=== PATIENT | male | born 1950 | race Caucasian/White ===

== ENCOUNTER 2017-10-19 16:16 | Inpatient (IN) | payer OTHER ==
[~2017-10-19] VITALS: Ht 175.3 cm; Wt 80.0 kg
[2017-10-20 00:52] LABS: MCH 30.7 PG (29.0-34.0); MCV 90.4 FL (86-99); RBC DIS.WIDTH-SD 50.1 % (39-53); RED BLOOD COUNT 5.53 M/uL (4.00-5.50); WHITE BLOOD COUNT 9.4 K/uL (4.1-10.2)
[2017-10-20 01:07] LABS: ALBUMIN 4.1 g/dL (3.2-4.8); CHLORIDE 99 mEq/L (99-109)
[2017-10-20 01:08] LABS: POTASSIUM 4.6 mEq/L (3.7-5.4); SODIUM 139 mEq/L (136-147)
[2017-10-20 01:10] LABS: GLUCOSE 96 mg/dL (70-99); TOTAL PROTEIN 7.8 g/dL (6.4-8.3)
[2017-10-20 01:12] LABS: TOTAL BILIRUBIN 5.1 mg/dL (0.0-1.0)
[2017-10-20 01:13] LABS: ALKALINE PHOSPHATASE 969 IU/L (3-129); CREATININE 0.9 mg/dL (0.6-1.3); GFR ESTIMATE (CALCULATED) > 59 mL/min/ (58.99-99999)
[2017-10-20 01:15] LABS: AST (GOT) 216 IU/L (2-34); UREA NITROGEN (BUN) 28 mg/dL (9-23)
[2017-10-20 01:16] LABS: ALT (GPT) 249 IU/L (3-49)
[2017-10-20 01:45] LABS: PLAT.SUFFICIENCY ADEQUATE; PLATELET COUNT 235 K/uL (156-360)
[2017-10-20 01:54] LABS: LIPASE 38 U/L (1.0-51.0)
[2017-10-20 02:18] LABS: ACETAMINOPHEN (TYLENOL) < 10 mcg/mL (10-30); SALICYLATE < 5.0 MG/DL (15-30)
[2017-10-20] MEDS ORDERED: LIPITOR80 MG PO (08:01)
[2017-10-20] MEDS ORDERED: NAPROXEN500 MG PO (08:01)
[2017-10-20] MEDS ORDERED: HYDROCHLOROTHIA25 MG PO (08:02)
[2017-10-20] MEDS ORDERED: VITAMIN D31000 UNIT PO (08:02)
[2017-10-20] MEDS ORDERED: AMLODIPINE BESYL5 MG PO (08:02)
[2017-10-20] MEDS ORDERED: TENORMIN25 MG PO (08:02)
[2017-10-20] MEDS ORDERED: ADULT ASPIRIN R81 MG PO (08:02)
[2017-10-20] MEDS ORDERED: VENTOLIN HFA18 GM IH (08:02)
[2017-10-20 16:10] VITALS: BP 156/77
[2017-10-20 19:40] VITALS: BP 155/74
[2017-10-20 23:55] VITALS: BP 151/79
[2017-10-21 03:35] VITALS: BP 142/88
[2017-10-21 07:05] VITALS: BP 147/79
[2017-10-21 07:33] LABS: HEMATOCRIT 46.8 % (38.0-50.0); HEMOGLOBIN 15.5 G/DL (12.5-16.6); MCH 30.6 PG (29.0-34.0); MCHC 33.1 G/DL (30.0-36.0); MCV 92.3 FL (86-99); RBC DIS.WIDTH-CV 15.4 % (11.8-14.6); RED BLOOD COUNT 5.07 M/uL (4.00-5.50); WHITE BLOOD COUNT 7.9 K/uL (4.1-10.2)
[2017-10-21 08:03] LABS: ALBUMIN 3.5 G/DL (3.2-4.8); ALKALINE PHOSPHATASE 804 IU/L (3-129); ALT (GPT) 162 IU/L (3-49); AST (GOT) 163 IU/L (2-34); CHLORIDE 99 MEQ/L (99-109); CREATININE 0.7 MG/DL (0.6-1.3); GFR ESTIMATE (CALCULATED) > 59 mL/min/ (58.99-99999); GLUCOSE 103 mg/dL (70-99); POTASSIUM 4.4 MEQ/L (3.7-5.4); SODIUM 139 MEQ/L (136-147); TOTAL BILIRUBIN 4.6 MG/DL (0.0-1.0); TOTAL PROTEIN 5.8 G/DL (6.4-8.3); UREA NITROGEN (BUN) 21 mg/dL (9-23)
[2017-10-21 08:09] LABS: PLAT.SUFFICIENCY ADEQUATE; PLATELET COUNT 190 K/uL (156-360)
[2017-10-21 12:06] VITALS: BP 147/90
[2017-10-21 15:05] VITALS: BP 145/68
[2017-10-21 19:53] VITALS: BP 159/75
[2017-10-21 23:52] VITALS: BP 136/65
[2017-10-22] VITALS (9 sets, daily range): BP systolic 120–139; BP diastolic 62–74
[2017-10-22 06:42] LABS: ALBUMIN 3.7 G/DL (3.2-4.8); ALKALINE PHOSPHATASE 861 IU/L (3-129); ALT (GPT) 200 IU/L (3-49); AST (GOT) 217 IU/L (2-34); CHLORIDE 98 MEQ/L (99-109); CREATININE 0.7 MG/DL (0.6-1.3); GFR ESTIMATE (CALCULATED) > 59 mL/min/ (58.99-99999); GLUCOSE 114 mg/dL (70-99); POTASSIUM 4.1 MEQ/L (3.7-5.4); SODIUM 139 MEQ/L (136-147); TOTAL PROTEIN 5.9 G/DL (6.4-8.3); UREA NITROGEN (BUN) 20 mg/dL (9-23)
[2017-10-22 08:11] LABS: CARCINOEMBR.ANTIGEN 754.8 NG/ML
[2017-10-22 08:11] LABS: INTER. NORMALIZED RATIO 1.1
[2017-10-22 08:13] LABS: PTT 40.4 SEC (25-37)
[2017-10-23 03:42] VITALS: BP 144/82
[2017-10-23 08:30] VITALS: BP 132/67
[2017-10-23 11:30] VITALS: BP 134/75
[2017-10-23 16:37] VITALS: BP 145/79
[2017-10-24] VITALS: BP 136/68
[2017-10-24 07:56] LABS: HEMATOCRIT 44.4 % (38.0-50.0); HEMOGLOBIN 14.8 G/DL (12.5-16.6); MCH 30.6 PG (29.0-34.0); MCHC 33.3 G/DL (30.0-36.0); MCV 91.9 FL (86-99); RBC DIS.WIDTH-CV 15.9 % (11.8-14.6); RBC DIS.WIDTH-SD 53.3 % (39-53); RED BLOOD COUNT 4.83 M/uL (4.00-5.50); WHITE BLOOD COUNT 9.4 K/uL (4.1-10.2)
[2017-10-24 08:24] LABS: PLAT.SUFFICIENCY ADEQUATE; PLATELET COUNT 199 K/uL (156-360)
[2017-10-24 08:30] VITALS: BP 130/78
[2017-10-24 08:44] LABS: ALBUMIN 3.7 G/DL (3.2-4.8); ALKALINE PHOSPHATASE 918 IU/L (3-129); ALT (GPT) 325 IU/L (3-49); CHLORIDE 96 MEQ/L (99-109); CREATININE 0.8 MG/DL (0.6-1.3); GFR ESTIMATE (CALCULATED) > 59 mL/min/ (58.99-99999); GLUCOSE 104 mg/dL (70-99); POTASSIUM 4.4 MEQ/L (3.7-5.4); SODIUM 137 MEQ/L (136-147); TOTAL PROTEIN 5.9 G/DL (6.4-8.3); UREA NITROGEN (BUN) 23 mg/dL (9-23)
[2017-10-24 08:57] LABS: AST (GOT) 316 IU/L (2-34); TOTAL BILIRUBIN 8.2 MG/DL (0.0-1.0)
[2017-10-24 16:01] VITALS: BP 124/65
[2017-10-24 23:49] VITALS: BP 129/65
[2017-10-25 07:21] LABS: ALBUMIN 3.7 G/DL (3.2-4.8); ALKALINE PHOSPHATASE 1040 IU/L (3-129); ALT (GPT) 357 IU/L (3-49); AST (GOT) 365 IU/L (2-34); CHLORIDE 94 MEQ/L (99-109); CREATININE 0.8 MG/DL (0.6-1.3); GFR ESTIMATE (CALCULATED) > 59 mL/min/ (58.99-99999); GLUCOSE 123 mg/dL (70-99); POTASSIUM 3.6 MEQ/L (3.7-5.4); SODIUM 135 MEQ/L (136-147); TOTAL BILIRUBIN 9.1 MG/DL (0.0-1.0); TOTAL PROTEIN 6.1 G/DL (6.4-8.3); UREA NITROGEN (BUN) 23 mg/dL (9-23)
[2017-10-25 08:29] VITALS: BP 009/72; BP 109/72
[2017-10-25 15:23] VITALS: BP 129/87
[2017-10-25 23:57] VITALS: BP 146/70
[2017-10-26 06:44] LABS: HEMATOCRIT 44.4 % (38.0-50.0); HEMOGLOBIN 14.9 G/DL (12.5-16.6); MCH 30.4 PG (29.0-34.0); MCHC 33.6 G/DL (30.0-36.0); MCV 90.6 FL (86-99); PLATELET COUNT 221 K/uL (156-360); RBC DIS.WIDTH-SD 53.2 % (39-53); WHITE BLOOD COUNT 9.2 K/uL (4.1-10.2)
[2017-10-26 07:10] LABS: ALBUMIN 3.4 G/DL (3.2-4.8); ALKALINE PHOSPHATASE 935 IU/L (3-129); ALT (GPT) 372 IU/L (3-49); AST (GOT) 395 IU/L (2-34); CHLORIDE 92 MEQ/L (99-109); CREATININE 0.8 MG/DL (0.6-1.3); GFR ESTIMATE (CALCULATED) > 59 mL/min/ (58.99-99999); GLUCOSE 103 mg/dL (70-99); POTASSIUM 3.6 MEQ/L (3.7-5.4); SODIUM 135 MEQ/L (136-147); TOTAL PROTEIN 5.7 G/DL (6.4-8.3); UREA NITROGEN (BUN) 19 mg/dL (9-23)
[2017-10-26 07:56] VITALS: BP 134/78
[2017-10-26 15:55] VITALS: BP 148/79
[2017-10-26 23:29] VITALS: BP 163/90
[2017-10-27 06:54] LABS: ALBUMIN 3.5 G/DL (3.2-4.8); ALKALINE PHOSPHATASE 1012 IU/L (3-129); ALT (GPT) 345 IU/L (3-49); AST (GOT) 410 IU/L (2-34); CHLORIDE 91 MEQ/L (99-109); GFR ESTIMATE (CALCULATED) > 59 mL/min/ (58.99-99999); GLUCOSE 92 mg/dL (70-99); POTASSIUM 3.6 MEQ/L (3.7-5.4); SODIUM 134 MEQ/L (136-147); TOTAL BILIRUBIN 10.8 MG/DL (0.0-1.0); TOTAL PROTEIN 5.8 G/DL (6.4-8.3); UREA NITROGEN (BUN) 24 mg/dL (9-23)
[2017-10-27 08:40] VITALS: BP 144/74
[2017-10-27 15:00] VITALS: BP 147/83
[2017-10-27 22:46] VITALS: BP 139/70
[2017-10-28 06:16] LABS: BASOPHIL (%) 0.2 % (0-1); EOSINOPHIL (%) 0 % (0-5); HEMATOCRIT 44.5 % (38.0-50.0); HEMOGLOBIN 15.2 G/DL (12.5-16.6); IMMATURE GRANULOCYTE (%) 1.3 % (0.0-0.7); LYMPHOCYTE (%) 2.4 % (15-42); LYMPHOCYTE COUNT 0.3 K/uL (1.0-2.8); MCH 30.7 PG (29.0-34.0); MCHC 34.2 G/DL (30.0-36.0); MCV 89.9 FL (86-99); MONOCYTE (%) 7.8 % (3-12); NEUTROPHIL (%) 88.3 % (45-76); PLATELET COUNT 245 K/uL (156-360); RBC DIS.WIDTH-CV 16.1 % (11.8-14.6); RBC DIS.WIDTH-SD 53.4 % (39-53); RED BLOOD COUNT 4.95 M/uL (4.00-5.50); WHITE BLOOD COUNT 12.5 K/uL (4.1-10.2)
[2017-10-28 07:45] LABS: ALBUMIN 3.5 G/DL (3.2-4.8); ALKALINE PHOSPHATASE 945 IU/L (3-129); ALT (GPT) 270 IU/L (3-49); AST (GOT) 326 IU/L (2-34); CHLORIDE 92 MEQ/L (99-109); GLUCOSE 108 mg/dL (70-99); SODIUM 135 MEQ/L (136-147); TOTAL BILIRUBIN 10.9 MG/DL (0.0-1.0); TOTAL PROTEIN 6.2 G/DL (6.4-8.3)
[2017-10-28 07:49] LABS: CREATININE 2.3 MG/DL (0.6-1.3); GFR ESTIMATE (CALCULATED) 30 mL/min/ (58.99-99999); UREA NITROGEN (BUN) 51 mg/dL (9-23)
[2017-10-28 07:50] LABS: POTASSIUM 4.7 MEQ/L (3.7-5.4)
[2017-10-28 08:28] VITALS: BP 154/72
[2017-10-28 15:49] VITALS: BP 131/70
[2017-10-28 23:02] VITALS: BP 145/75
[2017-10-29 05:38] LABS: APPEARANCE CLOUDY ((CLEAR)); BILIRUBIN SMALL; BLOOD MODERATE; GLUCOSE (STRIP) 50; KETONES NEGATIVE; LEUKOCYTES NEGATIVE; NITRITE NEGATIVE; PROTEIN (STRIP) 100; SPECIFIC GRAVITY 1.016 (1.000-1.030); UROBILINOGEN 0.2 MG/DL (0.2-1.0)
[2017-10-29 05:46] LABS: COLOR BROWN ((YELLOW))
[2017-10-29 05:57] LABS: BASOPHIL (%) 0.2 % (0-1); EOSINOPHIL (%) 0 % (0-5); HEMOGLOBIN 14.9 G/DL (12.5-16.6); IMMATURE GRANULOCYTE (%) 1.3 % (0.0-0.7); LYMPHOCYTE (%) 3.9 % (15-42); LYMPHOCYTE COUNT 0.5 K/uL (1.0-2.8); MCH 30.7 PG (29.0-34.0); MCHC 33.9 G/DL (30.0-36.0); MCV 90.5 FL (86-99); MONOCYTE (%) 7.8 % (3-12); NEUTROPHIL (%) 86.8 % (45-76); PLATELET COUNT 277 K/uL (156-360); RBC DIS.WIDTH-CV 16.3 % (11.8-14.6); RBC DIS.WIDTH-SD 54.3 % (39-53); RED BLOOD COUNT 4.86 M/uL (4.00-5.50); WHITE BLOOD COUNT 12.6 K/uL (4.1-10.2)
[2017-10-29 06:00] LABS: UR CREATININE CONCENTRATION 91.9 MG/DL
[2017-10-29 06:04] LABS: BACTERIA 3+ /HPF; EPITHELIAL CELLS 1+ /HPF; MUCUS 1+ /LPF; RED BLOOD CELLS 0-5 /HPF (0-5)
[2017-10-29 06:05] LABS: AMORPHOUS URATES CRYSTALS 1+
[2017-10-29 06:24] LABS: ALBUMIN 3.5 G/DL (3.2-4.8); ALKALINE PHOSPHATASE 824 IU/L (3-129); ALT (GPT) 246 IU/L (3-49); AST (GOT) 297 IU/L (2-34); CHLORIDE 90 MEQ/L (99-109); CREATININE 4.1 MG/DL (0.6-1.3); GFR ESTIMATE (CALCULATED) 16 mL/min/ (58.99-99999); GLUCOSE 87 mg/dL (70-99); SODIUM 131 MEQ/L (136-147); TOTAL BILIRUBIN 11.4 MG/DL (0.0-1.0); TOTAL PROTEIN 6.1 G/DL (6.4-8.3); UREA NITROGEN (BUN) 83 mg/dL (9-23)
[2017-10-29 07:04] LABS: CHLORIDE 92 MEQ/L (99-109); GLUCOSE 82 mg/dL (70-99); MAGNESIUM 3.2 mg/dl (1.3-2.7); PHOSPHORUS 8.2 mg/dL (2.5-4.9); POTASSIUM 5.2 MEQ/L (3.7-5.4); SODIUM 133 MEQ/L (136-147); URIC ACID 14.7 mg/dL (3.1-9.2)
[2017-10-29 07:05] LABS: CREATININE 4.2 MG/DL (0.6-1.3); GFR ESTIMATE (CALCULATED) 15 mL/min/ (58.99-99999); UREA NITROGEN (BUN) 83 mg/dL (9-23)
[2017-10-29 07:43] VITALS: BP 144/67
[2017-10-29 16:00] VITALS: BP 115/57
[2017-10-29 23:31] VITALS: BP 127/75
[2017-10-30 02:42] LABS: C DIFF TOXIN NEGATIVE (NEGATIVE)
[2017-10-30 05:08] LABS: BASOPHIL (%) 0 % (0-1); EOSINOPHIL (%) 0 % (0-5); HEMATOCRIT 41.3 % (38.0-50.0); HEMOGLOBIN 14.1 G/DL (12.5-16.6); IMMATURE GRANULOCYTE (%) 0.9 % (0.0-0.7); LYMPHOCYTE (%) 2.1 % (15-42); LYMPHOCYTE COUNT 0.2 K/uL (1.0-2.8); MCH 30.3 PG (29.0-34.0); MCHC 34.1 G/DL (30.0-36.0); MCV 88.8 FL (86-99); MONOCYTE (%) 8.2 % (3-12); MONOCYTE COUNT 0.9 K/uL (0-0.8); NEUTROPHIL (%) 88.8 % (45-76); NEUTROPHIL COUNT 9.5 K/uL (1.8-6.4); PLATELET COUNT 233 K/uL (156-360); RBC DIS.WIDTH-CV 16.5 % (11.8-14.6); RED BLOOD COUNT 4.65 M/uL (4.00-5.50); WHITE BLOOD COUNT 10.7 K/uL (4.1-10.2)
[2017-10-30 05:35] LABS: ALKALINE PHOSPHATASE 890 IU/L (3-129); ALT (GPT) 220 IU/L (3-49); AST (GOT) 320 IU/L (2-34); CHLORIDE 95 MEQ/L (99-109); GFR ESTIMATE (CALCULATED) 16 mL/min/ (58.99-99999); GLUCOSE 79 mg/dL (70-99); POTASSIUM 4.9 MEQ/L (3.7-5.4); SODIUM 136 MEQ/L (136-147); TOTAL BILIRUBIN 12.9 MG/DL (0.0-1.0); TOTAL PROTEIN 5.5 G/DL (6.4-8.3); UREA NITROGEN (BUN) 66 mg/dL (9-23)
[2017-10-30 07:01] VITALS: BP 126/64
[2017-10-30 11:17] VITALS: BP 124/71
[2017-10-30 11:32] LABS: HEPATITIS B SURFACE ANTIGEN Nonreactive
[2017-10-30 11:33] LABS: HEPATITIS C ANTIBODY Nonreactive
[2017-10-30 11:34] LABS: ANTI-HEPATITIS B CORE (TOTAL) Nonreactive; HEPATITIS B SURFACE ANTIBODY Nonreactive
[2017-10-30 15:00] VITALS: BP 118/64
[2017-10-30 22:42] VITALS: BP 121/66
[2017-10-31 06:48] LABS: ALBUMIN 3.1 G/DL (3.2-4.8); ALKALINE PHOSPHATASE 943 IU/L (3-129); ALT (GPT) 281 IU/L (3-49); AST (GOT) 382 IU/L (2-34); CHLORIDE 92 MEQ/L (99-109); CREATININE 4.6 MG/DL (0.6-1.3); GFR ESTIMATE (CALCULATED) 14 mL/min/ (58.99-99999); GLUCOSE 96 mg/dL (70-99); SODIUM 132 MEQ/L (136-147); TOTAL PROTEIN 5.5 G/DL (6.4-8.3); UREA NITROGEN (BUN) 73 mg/dL (9-23); URIC ACID 10.4 mg/dL (3.1-9.2)
[2017-10-31 07:00] VITALS: BP 160/82
[2017-10-31 09:45] VITALS: BP 124/70
[2017-11-01 00:37] VITALS: BP 125/64
[2017-11-01 07:02] LABS: ALBUMIN 2.9 G/DL (3.2-4.8); ALKALINE PHOSPHATASE 992 IU/L (3-129); ALT (GPT) 311 IU/L (3-49); AST (GOT) 431 IU/L (2-34); CHLORIDE 95 MEQ/L (99-109); CREATININE 4.2 MG/DL (0.6-1.3); GFR ESTIMATE (CALCULATED) 15 mL/min/ (58.99-99999); GLUCOSE 99 mg/dL (70-99); POTASSIUM 4.9 MEQ/L (3.7-5.4); SODIUM 138 MEQ/L (136-147); TOTAL BILIRUBIN 14.9 MG/DL (0.0-1.0); TOTAL PROTEIN 5.2 G/DL (6.4-8.3); UREA NITROGEN (BUN) 60 mg/dL (9-23)
[2017-11-01 07:42] VITALS: BP 128/68
[2017-11-01 17:25] VITALS: BP 148/70
[2017-11-01 23:35] VITALS: BP 128/75
[2017-11-02 06:02] LABS: BASOPHIL (%) 0.3 % (0-1); EOSINOPHIL (%) 0.1 % (0-5); HEMATOCRIT 40.8 % (38.0-50.0); HEMOGLOBIN 14.2 G/DL (12.5-16.6); IMMATURE GRANULOCYTE (%) 1.5 % (0.0-0.7); LYMPHOCYTE (%) 1.7 % (15-42); LYMPHOCYTE COUNT 0.2 K/uL (1.0-2.8); MCH 30.5 PG (29.0-34.0); MCHC 34.8 G/DL (30.0-36.0); MCV 87.6 FL (86-99); MONOCYTE (%) 6.8 % (3-12); MONOCYTE COUNT 0.8 K/uL (0-0.8); NEUTROPHIL (%) 89.6 % (45-76); NEUTROPHIL COUNT 10.3 K/uL (1.8-6.4); PLATELET COUNT 177 K/uL (156-360); RBC DIS.WIDTH-SD 53.6 % (39-53); RED BLOOD COUNT 4.66 M/uL (4.00-5.50); WHITE BLOOD COUNT 11.5 K/uL (4.1-10.2)
[2017-11-02 07:11] LABS: ALKALINE PHOSPHATASE 980 IU/L (3-129); ALT (GPT) 308 IU/L (3-49); AST (GOT) 343 IU/L (2-34); CHLORIDE 93 MEQ/L (99-109); CREATININE 5.5 MG/DL (0.6-1.3); GFR ESTIMATE (CALCULATED) 11 mL/min/ (58.99-99999); GLUCOSE 83 mg/dL (70-99); POTASSIUM 5.7 MEQ/L (3.7-5.4); SODIUM 136 MEQ/L (136-147); TOTAL BILIRUBIN 16.4 MG/DL (0.0-1.0); TOTAL PROTEIN 5.3 G/DL (6.4-8.3); UREA NITROGEN (BUN) 86 mg/dL (9-23); VANCOMYCIN, TROUGH 10.3 MCG/ML (10-20)
[2017-11-02 07:47] VITALS: BP 130/75
[2017-11-02 15:46] VITALS: BP 129/69
[2017-11-02 23:30] VITALS: BP 143/84
[2017-11-03 05:45] LABS: BASOPHIL (%) 0.4 % (0-1); BASOPHIL COUNT 0.1 K/uL (0-0.1); EOSINOPHIL (%) 0.1 % (0-5); HEMATOCRIT 43.4 % (38.0-50.0); HEMOGLOBIN 14.8 G/DL (12.5-16.6); IMMATURE GRANULOCYTE (%) 1.6 % (0.0-0.7); LYMPHOCYTE (%) 1.3 % (15-42); LYMPHOCYTE COUNT 0.2 K/uL (1.0-2.8); MCH 29.4 PG (29.0-34.0); MCHC 34.1 G/DL (30.0-36.0); MCV 86.1 FL (86-99); MONOCYTE COUNT 0.9 K/uL (0-0.8); NEUTROPHIL (%) 89.6 % (45-76); NRBC (%) 0.1 /100 WBC (0-0); PLATELET COUNT 217 K/uL (156-360); RBC DIS.WIDTH-CV 16.6 % (11.8-14.6); RBC DIS.WIDTH-SD 51.2 % (39-53); RED BLOOD COUNT 5.04 M/uL (4.00-5.50); WHITE BLOOD COUNT 13.4 K/uL (4.1-10.2)
[2017-11-03 07:14] LABS: ALBUMIN 3.1 G/DL (3.2-4.8); ALKALINE PHOSPHATASE 1033 IU/L (3-129); ALT (GPT) 296 IU/L (3-49); AST (GOT) 348 IU/L (2-34); CHLORIDE 92 MEQ/L (99-109); CREATININE 4.8 MG/DL (0.6-1.3); GFR ESTIMATE (CALCULATED) 13 mL/min/ (58.99-99999); GLUCOSE 93 mg/dL (70-99); MAGNESIUM 2.8 mg/dl (1.3-2.7); PHOSPHORUS 5.7 mg/dL (2.5-4.9); POTASSIUM 5.1 MEQ/L (3.7-5.4); SODIUM 134 MEQ/L (136-147); TOTAL BILIRUBIN 17.3 MG/DL (0.0-1.0); TOTAL PROTEIN 5.6 G/DL (6.4-8.3); UREA NITROGEN (BUN) 67 mg/dL (9-23); URIC ACID 9.6 mg/dL (3.1-9.2)
[2017-11-03 07:17] LABS: VANCOMYCIN, TROUGH 16.8 MCG/ML (10-20)
[2017-11-03 07:41] VITALS: BP 117/63
[2017-11-03] MEDS ORDERED: DECADRON4 MG PO (16:01)
[2017-11-03] MEDS ORDERED: MORPHINE CON20 MG/M1 PO (16:08)
[2017-11-03] MEDS ORDERED: ANASPAZ0.125 MG PO (16:08)
[2017-11-03] MEDS ORDERED: ATIVAN INTE2 MG/1 ML PO (16:12)
[2017-11-03 16:20] VITALS: BP 121/68
[2017-11-03] MEDS ORDERED: CONSTULOSE10 GM/15 M PO (16:39)
== END 2017-11-03 19:43 | disposition hospice, home (50) | DRG 542 ==
LOC: EME 16:16 → EXP 16:16 → EDOF 10-20 03:10 → 2EAST 10-20 03:10 → ENRESERV 10-20 03:14 → 2EAST 10-20 16:03 → ENRESERV 10-26 13:04 → 5EAST 10-26 15:58
PROVIDERS: Internal Medicine; Internal Medicine Nephrology; Physician Assistant; Radiology Diagnostic Radiology
PROC: 0FB13ZX Excision of Right Lobe Liver, Percutaneous Approach, Diagnostic (ICD-10-PCS; principal; 2017-10-22)
PROC: B548ZZA Ultrasonography of Superior Vena Cava, Guidance (ICD-10-PCS; 2017-10-29)
PROC: 5A1D70Z Performance of Urinary Filtration, Intermittent, Less than 6 Hours Per Day (ICD-10-PCS; 2017-10-29)
PROC: 02HV33Z Insertion of Infusion Device into Superior Vena Cava, Percutaneous Approach (ICD-10-PCS; 2017-10-29)
PROC: 5A1D70Z Performance of Urinary Filtration, Intermittent, Less than 6 Hours Per Day (ICD-10-PCS; 2017-10-30)
PROC: 5A1D70Z Performance of Urinary Filtration, Intermittent, Less than 6 Hours Per Day (ICD-10-PCS; 2017-10-31)
PROC: DP0C3ZZ Beam Radiation of Other Bone using Electrons (ICD-10-PCS; 2017-11-02)
DX: M48.54XA Collapsed vertebra, not elsewhere classified, thoracic region, initial encounter for fracture (principal); N17.0 Acute kidney failure with tubular necrosis; C79.51 Secondary malignant neoplasm of bone; J18.9 Pneumonia, unspecified organism; E88.3 Tumor lysis syndrome; C78.7 Secondary malignant neoplasm of liver and intrahepatic bile duct; C79.89 Secondary malignant neoplasm of other specified sites; C79.70 Secondary malignant neoplasm of unspecified adrenal gland; C25.9 Malignant neoplasm of pancreas, unspecified; E27.8 Other specified disorders of adrenal gland; I25.10 Atherosclerotic heart disease of native coronary artery without angina pectoris; I13.2 Hypertensive heart and chronic kidney disease with heart failure and with stage 5 chronic kidney disease, or end stage renal disease; E87.5 Hyperkalemia; I70.0 Atherosclerosis of aorta; M48.061 Spinal stenosis, lumbar region without neurogenic claudication; M54.41 Lumbago with sciatica, right side; E78.5 Hyperlipidemia, unspecified; F17.200 Nicotine dependence, unspecified, uncomplicated; E72.20 Disorder of urea cycle metabolism, unspecified; Z51.5 Encounter for palliative care; T45.1X5A Adverse effect of antineoplastic and immunosuppressive drugs, initial encounter; I50.9 Heart failure, unspecified; M48.04 Spinal stenosis, thoracic region; R91.1 Solitary pulmonary nodule; N18.6 End stage renal disease; E83.52 Hypercalcemia; K59.00 Constipation, unspecified; E87.1 Hypo-osmolality and hyponatremia; Z66 Do not resuscitate; Y95 Nosocomial condition; K72.90 Hepatic failure, unspecified without coma; R09.02 Hypoxemia; K57.30 Diverticulosis of large intestine without perforation or abscess without bleeding; R74.0 Nonspecific elevation of levels of transaminase and lactic acid dehydrogenase [LDH]; Z99.2 Dependence on renal dialysis; I25.2 Old myocardial infarction; Z80.0 Family history of malignant neoplasm of digestive organs
CPT/HCPCS: 71045; 71260; 72131; 74177; 76705; 76770; 77012; 77280; 77290; 77295; 77300; 77331; 77334; 77336; 77412; 80048; 80053; 80202; 81003; 82140; 82378; 82570; 83690; 83735; 84100; 84156; 84550; 85025; 85027; 85610; 85730; 86301 90; 86704; 86706; 86803; 87070; 87205; 87340; 87493; 88307; 88341 TC; 88342 TC; 94640 76; 94799; 99202; 99281; 99285; C1752; G0103; G0480; J0456; J0640; J0692; J1100; J1170; J1644; J1650; J2270; J2405; J3010; J3370; J3489; J7030; J7050; J9190; J9263